=== PATIENT | female | born 1970 | race Hispanic/Latino ===

== ENCOUNTER 2018-04-24 09:11 | Inpatient (IN) | payer OTHER ==
[2018-04-24] VITALS (19 sets, daily range): BP systolic 88–162; BP diastolic 34–117
[~2018-04-24] VITALS: Ht 157.5 cm; Wt 52.8 kg
[2018-04-24 08:12] LABS: BASOPHILS % (AUTO) 0.3 % (0.0-5.0); EOSINOPHILS % (AUTO) 0.9 % (0.0-8.0); HEMATOCRIT 37.5 % (36-48); LYMPHOCYTES % (AUTO) 24.6 % (21.0-51.0); MEAN CORPUSCULAR HEMOGLOBIN 28.9 pg (27.0-33.0); MEAN CORPUSCULAR HGB CONC 34.2 g/dL (32.0-36.0); MEAN CORPUSCULAR VOLUME 84.6 fL (79-99); MONOCYTES % (AUTO) 7.6 % (3.0-13.0); NEUTROPHILS % (AUTO) 66.6 % (40.0-77.0); PLATELET COUNT (AUTO) 208 K/uL (130-400); RED BLOOD CELL COUNT(AUTO) 4.43 MIL/uL (4.00-5.50); RED CELL DISTRIBUTION WIDTH 12.3 % (11.0-15.5); WHITE BLOOD COUNT (AUTO) 5.9 K/uL (4.8-10.8)
[2018-04-24 08:13] LABS: CREATININE 0.8 mg/dL (0.5-1.5); POTASSIUM 4.1 mmol/L (3.5-5.1)
[2018-04-24 08:19] LABS: ALBUMIN 3.4 g/dL (3.5-5.0); BILIRUBIN,TOTAL 0.4 mg/dL (0.2-1.0); TOTAL PROTEIN, SERUM 7.8 g/dL (6.0-8.3)
[2018-04-24 08:27] LABS: INR 0.93 (0.85-1.15); PARTIAL THROMBOPLASTIN TIME 30.6 SEC (26.3-35.5); PROTHROMBIN TIME 9.8 SEC (9.6-11.6)
[2018-04-24] MEDS ORDERED: LIDOCAINE HCL-MPF 2% 5ML VIAL ONE (15:49)
[2018-04-24] MEDS ORDERED: IOHEXOL-350 50ML VIAL IV ONE (15:50)
[2018-04-24] MEDS ORDERED: IOHEXOL 350 MG/ML 100ML INFUS..BTL IV ONE (15:50)
[2018-04-24] MEDS ORDERED: NITROGLYCERIN 5 MG/ML 10 ML VIAL IV ONE (15:50)
[2018-04-24] MEDS ORDERED: BIVALIRUDIN 250 MG/VIAL IV ONE (15:50)
[2018-04-24] MEDS ORDERED: LABETALOL HCL 5 MG/ML 20ML VIAL IV ONE (16:37)
[2018-04-24] MEDS ORDERED: NITROGLYCERIN 50 MG/D5% WATER 1 BOT ONE (16:48)
[2018-04-24] MEDS ORDERED: SODIUM CHLORIDE 0.9% 1000ML 1,000 ML IV SCH (17:06)
[2018-04-24] MEDS ORDERED: DEXTROSE 50%-WATER 50 ML DISP.SYRIN IV PRN (17:15)
[2018-04-24] MEDS ORDERED: GLUCAGON 1MG KIT 1 MG ML IM PRN (17:15)
[2018-04-24] MEDS: INSULIN HUMULIN R 100 UNIT/ML 3ML SQ SCH (22:01)
[2018-04-24] MEDS: METOPROLOL TARTRATE 25 MG TAB PO SCH (23:25)
[2018-04-25] VITALS (34 sets, daily range): BP systolic 101–155; BP diastolic 45–116
[2018-04-25 04:00] LABS: HEMATOCRIT 35.3 % (36-48); MEAN CORPUSCULAR HEMOGLOBIN 28.5 pg (27.0-33.0); MEAN CORPUSCULAR HGB CONC 33.9 g/dL (32.0-36.0); MEAN CORPUSCULAR VOLUME 84.2 fL (79-99); PLATELET COUNT (AUTO) 190 K/uL (130-400); RED BLOOD CELL COUNT(AUTO) 4.19 MIL/uL (4.00-5.50); RED CELL DISTRIBUTION WIDTH 12.3 % (11.0-15.5); WHITE BLOOD COUNT (AUTO) 7.5 K/uL (4.8-10.8)
[2018-04-25 04:18] LABS: CREATININE 0.7 mg/dL (0.5-1.5); POTASSIUM 3.5 mmol/L (3.5-5.1)
[2018-04-25] MEDS: INSULIN HUMULIN R 100 UNIT/ML 3ML SQ SCH ×4 (05:33→21:35)
[2018-04-25] MEDS ORDERED: INSULIN HUMULIN R 100 UNIT/ML 3ML SQ SCH (07:30)
[2018-04-25] MEDS: METOPROLOL TARTRATE 25 MG TAB PO SCH ×2 (08:36→21:32)
[2018-04-25] MEDS: ISOSORBIDE MONO 30MG TAB SR PO SCH (09:00)
[2018-04-25 16:10] LABS: HEMOGLOBIN A1C 10.5 % (4.0-6.0)
[2018-04-25] MEDS: ATORVASTATIN CALCIUM 20 MG TABLET PO SCH (21:32)
[2018-04-26 03:56] VITALS: BP 126/50
[2018-04-26] MEDS: INSULIN HUMULIN R 100 UNIT/ML 3ML SQ SCH ×4 (06:22→21:00)
[2018-04-26 07:00] VITALS: BP 128/68
[2018-04-26] MEDS: METFORMIN HCL 500 MG TAB.SR.24H PO SCH ×2 (08:00→16:40)
[2018-04-26] MEDS: ASPIRIN 81MG TAB.CHEW PO SCH (09:06)
[2018-04-26] MEDS: GLIPIZIDE 5 MG TABLET PO SCH ×2 (09:06→16:40)
[2018-04-26] MEDS: ISOSORBIDE MONO 30MG TAB SR PO SCH (09:06)
[2018-04-26] MEDS: CLOPIDOGREL BISULFATE 75 MG TAB PO SCH (09:06)
[2018-04-26] MEDS: METOPROLOL TARTRATE 25 MG TAB PO SCH ×2 (09:06→20:36)
[2018-04-26] MEDS: LOSARTAN 50 MG TABLET PO SCH (09:06)
[2018-04-26] MEDS: AMLODIPINE BESYLATE 5 MG TAB PO SCH (09:07)
[2018-04-26] MEDS: ENOXAPARIN SODIUM 60 MG/0.6 ML SQ SCH (09:09)
[2018-04-26 11:00] VITALS: BP 108/48
[2018-04-26 16:00] VITALS: BP 118/58
[2018-04-26] MEDS ORDERED: LACTULOSE 20 GM/30 ML UDCUP PO PRN (18:45)
[2018-04-26 19:13] VITALS: BP 119/58
[2018-04-26] MEDS ORDERED: LACTULOSE 20 GM/30 ML UDCUP PO ONE (20:30)
[2018-04-26] MEDS: ATORVASTATIN CALCIUM 20 MG TABLET PO SCH (20:36)
[2018-04-26] MEDS ORDERED: INSULIN GLARGINE 100 UNITS/ML 10 ML VIAL SQ SCH (21:00)
[2018-04-27 00:43] VITALS: BP 111/55
[2018-04-27 04:07] LABS: HEMATOCRIT 34.2 % (36-48); MEAN CORPUSCULAR HEMOGLOBIN 29.8 pg (27.0-33.0); MEAN CORPUSCULAR HGB CONC 34.9 g/dL (32.0-36.0); MEAN CORPUSCULAR VOLUME 85.3 fL (79-99); NUCLEATED RED BLOOD CELLS 0.1 % (0.0-0.19); PLATELET COUNT (AUTO) 190 K/uL (130-400); RED BLOOD CELL COUNT(AUTO) 4.01 MIL/uL (4.00-5.50); RED CELL DISTRIBUTION WIDTH 12.4 % (11.0-15.5)
[2018-04-27 04:19] VITALS: BP 121/55
[2018-04-27 04:23] LABS: BILIRUBIN,TOTAL 0.3 mg/dL (0.2-1.0); CREATININE 0.8 mg/dL (0.5-1.5); POTASSIUM 4.1 mmol/L (3.5-5.1); TOTAL PROTEIN, SERUM 6.8 g/dL (6.0-8.3)
[2018-04-27 04:48] VITALS: BP 119/55
[2018-04-27] MEDS: GLIPIZIDE 5 MG TABLET PO SCH (06:21)
[2018-04-27] MEDS: INSULIN HUMULIN R 100 UNIT/ML 3ML SQ SCH ×2 (06:21→11:30)
[2018-04-27 07:27] VITALS: BP 115/67
[2018-04-27] MEDS: CLOPIDOGREL BISULFATE 75 MG TAB PO SCH (08:58)
[2018-04-27] MEDS: METFORMIN HCL 500 MG TAB.SR.24H PO SCH (08:58)
[2018-04-27] MEDS: ISOSORBIDE MONO 30MG TAB SR PO SCH (08:58)
[2018-04-27] MEDS: ASPIRIN 81MG TAB.CHEW PO SCH (08:58)
[2018-04-27] MEDS: LOSARTAN 50 MG TABLET PO SCH (08:59)
[2018-04-27] MEDS: AMLODIPINE BESYLATE 5 MG TAB PO SCH (08:59)
[2018-04-27] MEDS: METOPROLOL TARTRATE 25 MG TAB PO SCH (08:59)
[2018-04-27] MEDS: ENOXAPARIN SODIUM 60 MG/0.6 ML SQ SCH (09:00)
[2018-04-27 11:13] VITALS: BP 115/71
[2018-04-27] MEDS ORDERED: Isosorbide Mono 30MG Tab Sr PO (12:32)
[2018-04-27] MEDS ORDERED: LOSA50TA2 PO (12:32)
[2018-04-27] MEDS ORDERED: ATOR20TA65 PO (12:32)
[2018-04-27] MEDS ORDERED: METO25 PO (12:32)
[2018-04-27] MEDS ORDERED: AMLO5TAB4 PO (12:32)
[2018-04-27] MEDS ORDERED: INSU3INS3 SQ (12:32)
[2018-04-27] MEDS ORDERED: ASPI-1005 PO (12:32)
[2018-04-27] MEDS ORDERED: CLOP75TA14 PO (12:32)
[2018-04-27] MEDS ORDERED: GLIP5TAB11 PO (12:32)
[2018-04-27] MEDS ORDERED: METF500T3 PO (12:32)
== END 2018-04-27 15:00 | disposition home or self-care (01) | DRG 281 ==
LOC: EDSTATUS 09:11 → EDH 09:12 → EDHIP 09:13 → 2DH 14:39 → 2CH 17:15 → 2AH 04-27 04:32
PROVIDERS: ADMIT Internal Medicine; ATTEND Internal Medicine
PROC: 4A023N7 Measurement of Cardiac Sampling and Pressure, Left Heart, Percutaneous Approach (ICD-10-PCS; principal; 2018-04-24)
PROC: B2111ZZ Fluoroscopy of Multiple Coronary Arteries using Low Osmolar Contrast (ICD-10-PCS; 2018-04-24)
PROC: B2151ZZ Fluoroscopy of Left Heart using Low Osmolar Contrast (ICD-10-PCS; 2018-04-24)
DX: I21.4 Non-ST elevation (NSTEMI) myocardial infarction (principal); E46 Unspecified protein-calorie malnutrition; E11.65 Type 2 diabetes mellitus with hyperglycemia; I10 Essential (primary) hypertension; I25.10 Atherosclerotic heart disease of native coronary artery without angina pectoris; E78.2 Mixed hyperlipidemia; G47.00 Insomnia, unspecified; I16.0 Hypertensive urgency; K59.00 Constipation, unspecified; Z68.21 Body mass index [BMI] 21.0-21.9, adult; Z79.4 Long term (current) use of insulin; Z91.19 Patient's noncompliance with other medical treatment and regimen; Z82.49 Family history of ischemic heart disease and other diseases of the circulatory system
CPT/HCPCS: 36415; 80048; 80053; 80061; 82948; 83036; 83880; 85025; 85027; 85610; 85730; 93458; C1760; C1894; J0583; J1644; J1650; J1815; J3490; J7030; Q9967